=== PATIENT | female | born 1955 | race Caucasian/White ===

== ENCOUNTER 2021-01-15 13:18 | Inpatient (IN) | payer MEDICARE, OTHER ==
[~2021-01-15] VITALS: Ht 147.3 cm; Wt 53.5 kg
[2021-01-15] VITALS (13 sets, daily range): BP systolic 84–139; BP diastolic 45–78
[2021-01-15] MEDS ORDERED: NIFE60TA85 PO (13:25)
[2021-01-15] MEDS ORDERED: TACR0.5C21 PO (13:25)
[2021-01-15] MEDS ORDERED: METO-558 PO (13:25)
[2021-01-15] MEDS ORDERED: MYCO180T12 PO (13:29)
[2021-01-15] MEDS ORDERED: ASPI-1450 PO (13:29)
[2021-01-15] MEDS ORDERED: OMEP20 PO (13:29)
[2021-01-15] MEDS ORDERED: CHOL-35 PO (13:29)
[2021-01-15] MEDS ORDERED: CLOP75TA60 PO (13:29)
[2021-01-15] MEDS ORDERED: RIVA10TA PO (13:29)
[2021-01-15] MEDS ORDERED: HEPARIN SODIUM,PORCINE 1,000 UNITS/ML 10 ML VIAL ONE (13:30)
[2021-01-15] MEDS ORDERED: IODIXANOL 320 MG/ML 150 ML VIAL ONE (13:30)
[2021-01-15] MEDS ORDERED: RIVA20TA PO (13:30)
[2021-01-15] MEDS ORDERED: NITROGLYCERIN 50 MG/D5% WATER 250 ML ONE (13:30)
[2021-01-15] MEDS ORDERED: VERAPAMIL HCL 2.5 MG/ML 2 ML VIAL ONE (13:30)
[2021-01-15] MEDS ORDERED: SODIUM BICARBONATE 50 MEQ/50 ML VIAL ONE (13:31)
[2021-01-15] MEDS ORDERED: HEPARIN SODIUM 1000 UNITS/NS 1,000 ML ONE (13:31)
[2021-01-15] MEDS ORDERED: LIDOCAINE/PF 1% 30 ML VIAL ONE ×2 (13:31→15:32)
[2021-01-15] MEDS ORDERED: IODIXANOL 320 MG/ML 100 ML VIAL ONE (13:31)
[2021-01-15] MEDS ORDERED: PHENYLEPHRINE 200 MG/D5%-WATER 250 ML IV PRN (13:45)
[2021-01-15] MEDS ORDERED: OXYGEN THERAPY IH SCH (14:00)
[2021-01-15] MEDS ORDERED: SODIUM CHLORIDE 0.9% 1,000 ML IV ONE (14:30)
[2021-01-15] MEDS ORDERED: HEPARIN SODIUM 25000 UNITS/D5W 250 ML IV ONE (14:30)
[2021-01-15 14:41] LABS: BASOPHILS % (AUTO) 1.2 % (0.0-2.0); EOSINOPHILS % (AUTO) 0.1 % (1.0-6.0); HEMOGLOBIN 13.8 g/dL (12.0-16.0); LYMPHOCYTES # (AUTO) 0.7 K/uL (1.0-4.8); MEAN CORPUSCULAR HEMOGLOBIN 26.5 pg (26.0-34.0); MEAN CORPUSCULAR HGB CONC 31.4 G/dL (31.0-37.0); MEAN CORPUSCULAR VOLUME 84 fL (80-100); MONOCYTES # (AUTO) 0.3 K/uL (0.1-1.0); MONOCYTES % (AUTO) 4.6 % (2.0-9.0); NEUTROPHILS # (AUTO) 6.3 K/uL (1.8-7.7); NEUTROPHILS % (AUTO) 84.1 % (40.0-70.0); PLATELET COUNT (AUTO) 215 K/uL (150-450); RED BLOOD CELL COUNT(AUTO) 5.22 MIL/uL (4.00-5.20); RED CELL DISTRIBUTION WIDTH 17.7 % (11.5-14.5)
[2021-01-15] MEDS ORDERED: HEPARIN SODIUM,PORCINE 5,000 UNITS/ML VIAL IVP ONE ×2 (14:45→16:06)
[2021-01-15 14:57] LABS: ALBUMIN 3.1 g/dL (3.4-5.0); BILIRUBIN,TOTAL 0.6 mg/dL (0.1-1.0); CALCIUM, TOTAL 9.8 mg/dL (8.8-10.5); CREATININE 1.34 mg/dL (0.60-1.30); MAGNESIUM 1.7 mg/dL (1.80-2.40)
[2021-01-15] MEDS ORDERED: INSULIN REGULAR, HUMAN 100 UNITS/ML SQ ONE (15:15)
[2021-01-15] MEDS ORDERED: MIDAZOLAM HCL 2 MG/2 ML VIAL ONE (15:16)
[2021-01-15] MEDS ORDERED: FentaNYL CITRATE PF 100 MCG/2 ML VIAL ONE ×2 (15:16→16:25)
[2021-01-15] MEDS ORDERED: SODIUM CHLORIDE 0.9% 500 ML IV ONE (15:30)
[2021-01-15] MEDS ORDERED: MIDAZOLAM HCL 2 MG/2 ML VIAL IVP ONE (15:43)
[2021-01-15] MEDS ORDERED: FentaNYL CITRATE PF 100 MCG/2 ML VIAL IVP ONE (15:43)
[2021-01-15] MEDS ORDERED: ONDANSETRON HCL 4 MG/2 ML VIAL IVP PRN ×2 (15:45→17:15)
[2021-01-15] MEDS ORDERED: 0.9% SODIUM CHLORIDE 10 ML SYRINGE IVP PRN (15:45)
[2021-01-15] MEDS ORDERED: LIDOCAINE 1% 30 ML/SOD BICARB 8.4% 4 ML SQ ONE (15:49)
[2021-01-15] MEDS ORDERED: IODIXANOL 320 MG/ML 50 ML VIAL IARTER ONE (15:51)
[2021-01-15] MEDS ORDERED: IODIXANOL 320 MG/ML 100 ML VIAL IARTER ONE (15:51)
[2021-01-15] MEDS ORDERED: IODIXANOL 320 MG/ML 150 ML VIAL IARTER ONE (15:51)
[2021-01-15] MEDS ORDERED: HEPARIN SODIUM 25000 UNITS/D5W 250 ML IV SCH (16:00)
[2021-01-15] MEDS ORDERED: ONDANSETRON HCL 4 MG/2 ML VIAL ONE (16:03)
[2021-01-15] MEDS ORDERED: DiphenhydrAMINE HCL 50 MG/ML VIAL ONE ×2 (16:06→17:23)
[2021-01-15] MEDS ORDERED: DiphenhydrAMINE HCL 50 MG/ML VIAL IVP ONE ×2 (16:09→17:26)
[2021-01-15] MEDS ORDERED: IODIXANOL 320 MG/ML 50 ML VIAL ONE (16:10)
[2021-01-15] MEDS ORDERED: NITROGLYCERIN/D5W 50 MG/250 ML IV BOTTLE IARTER ONE ×2 (16:53→17:42)
[2021-01-15] MEDS ORDERED: ZOLPIDEM TARTRATE 5 MG TABLET PO PRN (17:15)
[2021-01-15] MEDS ORDERED: HYDROCODONE/ACETAMINOPHEN 5-325 MG TABLET PO PRN (17:15)
[2021-01-15] MEDS ORDERED: BISACODYL 10 MG RECTAL RECTAL SUPPOSITORY PR PRN (17:15)
[2021-01-15] MEDS ORDERED: ALBUTEROL SULFATE 2.5 MG/0.5 ML NEB SOLUTION NEB PRN (17:15)
[2021-01-15] MEDS ORDERED: ACETAMINOPHEN 325 MG TABLET PO PRN (17:15)
[2021-01-15] MEDS ORDERED: MORPHINE SULFATE 2 MG/ML SYRINGE IVP PRN (17:15)
[2021-01-15] MEDS ORDERED: IPRATROPIUM BROMIDE 0.5 MG/2.5 ML NEB SOLUTION NEB PRN (17:15)
[2021-01-15] MEDS ORDERED: MAGNESIUM HYDROXIDE SUSPENSION 30 ML UDCUP PO PRN (17:15)
[2021-01-15] MEDS ORDERED: PROTAMINE SULFATE 10 MG/ML 5 ML VIAL IVP ONE ×2 (17:53→18:00)
[2021-01-15 20:14] LABS: GLUCOMETER DEV NAME(LOC) 5S.1; GLUCOSE,POINT OF CARE 163 MG/DL (70-110)
[2021-01-15] MEDS: SODIUM CHLORIDE 0.9% 1,000 ML IV SCH (20:44)
[2021-01-15] MEDS: PredniSONE 5 MG TABLET PO SCH (20:44)
[2021-01-15 20:45] LABS: CREATININE 1.19 mg/dL (0.60-1.30); POTASSIUM 3.5 mmol/L (3.5-5.1)
[2021-01-15] MEDS: TACROLIMUS 1 MG CAPSULE PO SCH (20:46)
[2021-01-15] MEDS: TACROLIMUS 0.5 MG CAPSULE PO SCH (20:46)
[2021-01-15 20:50] LABS: MAGNESIUM 1.5 mg/dL (1.80-2.40); PHOSPHORUS 2.2 mg/dL (2.5-4.9)
[2021-01-15 20:52] LABS: PROTHROMBIN TIME 10.6 SEC (9.4-11.6)
[2021-01-15] MEDS ORDERED: TACROLIMUS 0.5 MG CAPSULE PO SCH ×2 (21:00)
[2021-01-15] MEDS: NIFEdipine 60 MG ER TABLET PO SCH (21:00)
[2021-01-15] MEDS: MYCOPHENOLATE SODIUM 180 MG DR TABLET PO SCH (21:34)
[2021-01-15] MEDS ORDERED: MAGNESIUM SULFATE 2 GM/WATER 50 ML IV ONE (21:45)
[2021-01-15] MEDS: HEPARIN SODIUM,PORCINE 5,000 UNITS/ML VIAL SQ SCH (23:09)
[2021-01-16] VITALS (8 sets, daily range): BP systolic 101–138; BP diastolic 47–71
[2021-01-16 00:13] LABS: APPEARANCE,URINE CLEAR (CLEAR); GLUCOSE, URINE (UA) >=1000 mg/dL (NEGATIVE); KETONES,URINE 40 mg/dL (NEGATIVE); LEUKOCYTE ESTERASE ,URINE MODERATE (NEGATIVE); NITRATE,URINE NEGATIVE (NEGATIVE); OCCULT BLOOD,URINE TRACE (NEGATIVE); PROTEIN,URINE NEGATIVE (NEGATIVE); UROBILINOGEN,URINE 0.2 mg/dL (<=1.0)
[2021-01-16 00:14] LABS: BILIRUBIN,URINE PRELIM. POSITIVE (NEGATIVE)
[2021-01-16] MEDS: SODIUM,POTASSIUM PHOSPHATES POWDER PACKET PO SCH ×2 (00:27→08:58)
[2021-01-16 00:28] LABS: RBC,URINE 0-2 /HPF (0-2)
[2021-01-16 00:29] LABS: BACTERIA,URINE Moderate /HPF (None Seen); SQUAMOUS EPITHELIAL CELL,UR Few /LPF (None Seen); YEAST,URINE Many /HPF (None Seen)
[2021-01-16] MEDS ORDERED: DEXTROSE 50%-WATER 25 GM/50 ML SYRINGE IVP PRN (01:30)
[2021-01-16] MEDS: INSULIN LISPRO 100 UNITS/ML SQ PRN ×5 (01:49→20:39)
[2021-01-16] MEDS: SODIUM CHLORIDE 0.9% 1,000 ML IV SCH ×3 (04:15→23:19)
[2021-01-16 06:11] LABS: GLUCOMETER DEV NAME(LOC) 5S.2B; GLUCOSE,POINT OF CARE 192 MG/DL (70-110)
[2021-01-16 06:11] LABS: GLUCOMETER DEV NAME(LOC) 5S.2B; GLUCOSE,POINT OF CARE 303 MG/DL (70-110)
[2021-01-16 06:11] LABS: GLUCOMETER DEV NAME(LOC) 5S.2B; GLUCOSE,POINT OF CARE 261 MG/DL (70-110)
[2021-01-16 07:00] LABS: HEMOGLOBIN A1C 10.3 % (3.8-5.6)
[2021-01-16 07:15] LABS: CALCIUM, TOTAL 8.8 mg/dL (8.8-10.5); CHOL/HDL RATIO 4.3 (3.9-5.7); CREATININE 1.07 mg/dL (0.60-1.30); MAGNESIUM 2.3 mg/dL (1.80-2.40); PHOSPHORUS 2.5 mg/dL (2.5-4.9); POTASSIUM 3.6 mmol/L (3.5-5.1)
[2021-01-16] MEDS: METOPROLOL SUCCINATE 50 MG ER TABLET PO SCH (07:40)
[2021-01-16] MEDS: NIFEdipine 60 MG ER TABLET PO SCH ×2 (07:40→20:37)
[2021-01-16] MEDS: TACROLIMUS 0.5 MG CAPSULE PO SCH ×2 (08:57→20:36)
[2021-01-16] MEDS: PredniSONE 5 MG TABLET PO SCH (08:57)
[2021-01-16] MEDS: MYCOPHENOLATE SODIUM 180 MG DR TABLET PO SCH ×2 (08:58→20:37)
[2021-01-16] MEDS: ASPIRIN 81 MG CHEWABLE TABLET PO SCH (08:58)
[2021-01-16] MEDS: HEPARIN SODIUM,PORCINE 5,000 UNITS/ML VIAL SQ SCH ×3 (08:58→23:20)
[2021-01-16] MEDS: OMEPRAZOLE 20 MG CAPSULE PO SCH (08:58)
[2021-01-16] MEDS: TACROLIMUS 1 MG CAPSULE PO SCH ×2 (08:58→20:37)
[2021-01-16 13:10] LABS: GLUCOMETER DEV NAME(LOC) 5S.1; GLUCOSE,POINT OF CARE 235 MG/DL (70-110)
[2021-01-16 18:57] LABS: GLUCOMETER DEV NAME(LOC) 5S.2B; GLUCOSE,POINT OF CARE 268 MG/DL (70-110)
[2021-01-16] MEDS: ATORVASTATIN CALCIUM 20 MG TABLET PO SCH (20:37)
[2021-01-16] MEDS: INSULIN GLARGINE,HUM.REC.ANLOG 100 UNITS/ML SQ SCH (20:39)
[2021-01-16 22:28] LABS: GLUCOMETER DEV NAME(LOC) 5S.1; GLUCOSE,POINT OF CARE 259 MG/DL (70-110)
[2021-01-17 04:00] VITALS: BP 112/56
[2021-01-17] MEDS: INSULIN LISPRO 100 UNITS/ML SQ PRN ×4 (05:57→20:28)
[2021-01-17 07:50] LABS: CALCIUM, TOTAL 8.8 mg/dL (8.8-10.5); PHOSPHORUS 2.1 mg/dL (2.5-4.9); POTASSIUM 3.4 mmol/L (3.5-5.1)
[2021-01-17 08:00] VITALS: BP 132/65
[2021-01-17] MEDS: HEPARIN SODIUM,PORCINE 5,000 UNITS/ML VIAL SQ SCH ×2 (08:25→16:31)
[2021-01-17 08:36] LABS: GLUCOMETER DEV NAME(LOC) 5S.2B; GLUCOSE,POINT OF CARE 208 MG/DL (70-110)
[2021-01-17] MEDS: ASPIRIN 81 MG CHEWABLE TABLET PO SCH (08:55)
[2021-01-17] MEDS: MYCOPHENOLATE SODIUM 180 MG DR TABLET PO SCH ×2 (08:55→20:27)
[2021-01-17] MEDS: PredniSONE 5 MG TABLET PO SCH (08:55)
[2021-01-17] MEDS: TACROLIMUS 1 MG CAPSULE PO SCH ×2 (08:56→20:26)
[2021-01-17] MEDS: TACROLIMUS 0.5 MG CAPSULE PO SCH ×2 (08:56→20:26)
[2021-01-17] MEDS: OMEPRAZOLE 20 MG CAPSULE PO SCH (08:56)
[2021-01-17] MEDS: METOPROLOL SUCCINATE 50 MG ER TABLET PO SCH (09:00)
[2021-01-17] MEDS ORDERED: POTASSIUM CHLORIDE 20 MEQ ER TABLET PO ONE (10:00)
[2021-01-17] MEDS: NIFEdipine 60 MG ER TABLET PO SCH ×2 (11:43→20:26)
[2021-01-17] MEDS: SODIUM,POTASSIUM PHOSPHATES POWDER PACKET PO SCH ×2 (11:43→20:26)
[2021-01-17 12:00] VITALS: BP 151/101
[2021-01-17 12:34] LABS: GLUCOMETER DEV NAME(LOC) 5S.1; GLUCOSE,POINT OF CARE 231 MG/DL (70-110)
[2021-01-17] MEDS: SODIUM CHLORIDE 0.9% 1,000 ML IV SCH (14:38)
[2021-01-17 14:54] VITALS: BP 123/98
[2021-01-17 18:53] LABS: GLUCOMETER DEV NAME(LOC) 5S.2B; GLUCOSE,POINT OF CARE 272 MG/DL (70-110)
[2021-01-17 19:55] VITALS: BP 128/72
[2021-01-17] MEDS: ATORVASTATIN CALCIUM 20 MG TABLET PO SCH (20:27)
[2021-01-17] MEDS: INSULIN GLARGINE,HUM.REC.ANLOG 100 UNITS/ML SQ SCH (20:28)
[2021-01-17 21:56] LABS: GLUCOMETER DEV NAME(LOC) 5S.2B; GLUCOSE,POINT OF CARE 214 MG/DL (70-110)
[2021-01-18] MEDS: HEPARIN SODIUM,PORCINE 5,000 UNITS/ML VIAL SQ SCH ×2 (00:07→09:04)
[2021-01-18 00:08] VITALS: BP 126/76
[2021-01-18] MEDS: SODIUM CHLORIDE 0.9% 1,000 ML IV SCH (04:32)
[2021-01-18 05:26] VITALS: BP 125/70
[2021-01-18] MEDS: INSULIN LISPRO 100 UNITS/ML SQ PRN (06:09)
[2021-01-18 07:04] LABS: GLUCOMETER DEV NAME(LOC) 5S.2B; GLUCOSE,POINT OF CARE 229 MG/DL (70-110)
[2021-01-18 07:22] VITALS: BP 101/74
[2021-01-18] MEDS ORDERED: CHOLECALCIFEROL (VIT D3) 50,000 UNITS [1,250 MCG] CAPSULE PO SCH (09:00)
[2021-01-18] MEDS: NIFEdipine 60 MG ER TABLET PO SCH (09:00)
[2021-01-18] MEDS: METOPROLOL SUCCINATE 50 MG ER TABLET PO SCH (09:00)
[2021-01-18] MEDS: TACROLIMUS 0.5 MG CAPSULE PO SCH (09:03)
[2021-01-18] MEDS: ASPIRIN 81 MG CHEWABLE TABLET PO SCH (09:03)
[2021-01-18] MEDS: MYCOPHENOLATE SODIUM 180 MG DR TABLET PO SCH (09:03)
[2021-01-18] MEDS: PredniSONE 5 MG TABLET PO SCH (09:03)
[2021-01-18] MEDS: TACROLIMUS 1 MG CAPSULE PO SCH (09:03)
[2021-01-18] MEDS: OMEPRAZOLE 20 MG CAPSULE PO SCH (09:04)
[2021-01-18] MEDS ORDERED: ATOR10TA84 PO (09:25)
[2021-01-18] MEDS ORDERED: INSLAN SQ (09:26)
[2021-01-18] MEDS ORDERED: TACR1CAP12 PO (09:27)
[2021-01-18] MEDS ORDERED: INSREG SQ (10:27)
[2021-01-18] MEDS ORDERED: INSU100I26 SQ (10:33)
[2021-01-18] MEDS ORDERED: PRED-409 PO (11:52)
== END 2021-01-18 10:55 | disposition home or self-care (01) | DRG 252 ==
LOC: EDBD 13:23 → EMS 13:23 → 5S 17:40
PROVIDERS: ADMIT Hospitalist; ATTEND Hospitalist
PROC: 047L34Z Dilation of Left Femoral Artery with Drug-eluting Intraluminal Device, Percutaneous Approach (ICD-10-PCS; principal; 2021-01-15)
PROC: B410YZZ Fluoroscopy of Abdominal Aorta using Other Contrast (ICD-10-PCS; 2021-01-15)
PROC: B41GYZZ Fluoroscopy of Left Lower Extremity Arteries using Other Contrast (ICD-10-PCS; 2021-01-15)
PROC: B41FYZZ Fluoroscopy of Right Lower Extremity Arteries using Other Contrast (ICD-10-PCS; 2021-01-15)
DX: E11.51 Type 2 diabetes mellitus with diabetic peripheral angiopathy without gangrene (principal); N18.6 End stage renal disease; E87.2 Acidosis; E44.0 Moderate protein-calorie malnutrition; E87.1 Hypo-osmolality and hyponatremia; Z94.0 Kidney transplant status; I12.0 Hypertensive chronic kidney disease with stage 5 chronic kidney disease or end stage renal disease; E78.00 Pure hypercholesterolemia, unspecified; E78.5 Hyperlipidemia, unspecified; E11.65 Type 2 diabetes mellitus with hyperglycemia; H54.8 Legal blindness, as defined in USA; I70.222 Atherosclerosis of native arteries of extremities with rest pain, left leg; E11.22 Type 2 diabetes mellitus with diabetic chronic kidney disease; E83.39 Other disorders of phosphorus metabolism; E87.6 Hypokalemia; I25.10 Atherosclerotic heart disease of native coronary artery without angina pectoris; Z79.02 Long term (current) use of antithrombotics/antiplatelets; Z79.82 Long term (current) use of aspirin
CPT/HCPCS: 36200; 71045; 75630; 75716; 75962; 80048; 80053; 80061; 80197; 81001; 82550; 82962; 83036; 83735; 83880; 84100; 84132; 84484; 85025; 85610; 85730; 87081; 87086; 87205; 93005; 99291; J1200; J1644; J1815; J2250; J2370; J2405; J2720; J3010; J3475; J3490; J7030; J7507; J7518; Q9967; 36415-L1; 36415-TC; C1725; Z7610